=== PATIENT | female | born 1955 | race Caucasian/White ===

== ENCOUNTER 2021-07-05 17:38 | Observation (INO) | payer MEDICARE, MEDICAID ==
[2021-07-05 18:31] LABS: CHLORIDE,CL 105 mmol/L (98-107); SODIUM,NA 143 mmol/L (136-145)
[2021-07-05 18:32] LABS: ANION GAP 18.2 mmol/L (5-15)
[2021-07-05] MEDS ORDERED: Sodium Chloride 0.9% 1,000 ML IV ONE (18:34)
[2021-07-05] MEDS ORDERED: Take Home: LORazepam 0.5 MG Tab, 2 Tab Pack PO PRN (19:03)
[2021-07-05] MEDS ORDERED: Multivitamins w-Iron/Ca/FA/Min 1 TAB, Thiamine 100 MG, Folic Acid 1 MG, Magnesium Oxide... PO ONE ×3 (19:03)
[2021-07-05] MEDS ORDERED: Sodium Chloride 0.9% 10 ML Syringe FLUSH PRN (19:03)
[2021-07-05] MEDS ORDERED: Ondansetron 4 MG/2 ML SDV IV PRN (19:03)
[2021-07-05] MEDS ORDERED: Furosemide 40 MG Tab PO PRN (19:03)
[2021-07-05] MEDS ORDERED: LORazepam 1 MG Tab PO PRN (19:07)
[2021-07-05] MEDS ORDERED: busPIRone 15 MG Tab PO SCH (20:00)
[2021-07-05] MEDS ORDERED: traZODone 50 MG Tab PO SCH (20:00)
[2021-07-05] MEDS: Sodium Chloride 0.9% 1,000 ML IV SCH (20:02)
[2021-07-05] MEDS: Lisinopril 20 MG Tab PO SCH (20:13)
[2021-07-05] MEDS: Flecainide 50 MG Tab PO SCH (20:14)
[2021-07-05] MEDS: Ondansetron 4 MG Tab.DIS PO PRN (20:17)
[2021-07-05] MEDS: Apixaban 2.5 MG Tab PO SCH (22:52)
[2021-07-06] MEDS: Sodium Chloride 0.9% 1,000 ML IV SCH (04:14)
[2021-07-06] MEDS: Ondansetron 4 MG Tab.DIS PO PRN (06:01)
[2021-07-06] MEDS ORDERED: Aspirin 81 MG Tab.Chew PO SCH (08:00)
[2021-07-06] MEDS ORDERED: Sertraline 100 MG Tab PO SCH (08:00)
[2021-07-06] MEDS ORDERED: Carvedilol 12.5 MG Tab PO SCH (08:00)
[2021-07-06] MEDS ORDERED: Colchicine 0.6 MG Tab PO SCH (08:00)
[2021-07-06] MEDS ORDERED: Pantoprazole 40 MG Tab.CR PO SCH (08:00)
[2021-07-06] MEDS ORDERED: Finasteride 5 MG Tab PO SCH (08:00)
[2021-07-06] MEDS ORDERED: Potassium Chloride 20 MEQ Tab.ER PO SCH (08:00)
[2021-07-06] MEDS ORDERED: amLODIPine 10 MG Tab PO SCH (08:00)
[2021-07-06] MEDS ORDERED: Allopurinol 300 MG Tab PO SCH (08:00)
[2021-07-06] MEDS ORDERED: Rosuvastatin 20 MG Tab PO SCH (08:00)
[2021-07-06] MEDS ORDERED: busPIRone 15 MG Tab PO SCH (08:00)
[2021-07-06] MEDS ORDERED: Famotidine 20 MG Tab PO SCH (08:00)
[2021-07-06] MEDS ORDERED: Cholecalciferol (Vitamin D3) 25 MCG Tab PO SCH (08:30)
[2021-07-06] MEDS ORDERED: metFORMIN 500 MG Tab PO SCH (08:30)
[2021-07-06] MEDS: Lisinopril 20 MG Tab PO SCH (09:33)
[2021-07-06] MEDS: Flecainide 50 MG Tab PO SCH (09:35)
[2021-07-06] MEDS: Apixaban 2.5 MG Tab PO SCH (09:35)
== END 2021-07-06 10:20 | disposition home or self-care (01) ==
LOC: VM.ED 17:38 → VM.MS 18:50
PROVIDERS: ADMIT Physician Assistant Medical; ATTEND Physician Assistant Medical
DX: F10.929 Alcohol use, unspecified with intoxication, unspecified (principal); Z79.899 Other long term (current) drug therapy; Z20.822 Contact with and (suspected) exposure to COVID-19
CPT/HCPCS: 36415; 80053; 80307; 81001; 85025; 86140; 93005; 93010; 96374; 99217; 99220; 99285-25; A9270-GY; G0378; J2405; J7030; U0002